=== PATIENT | female | born 1970 | race Two or more races ===

== ENCOUNTER 2024-02-18 03:10 | Emergency (ER) | payer MEDICAID ==
[~2024-02-18] VITALS: Ht 172.7 cm; Wt 73.5 kg
[2024-02-18 03:18] VITALS: BP 129/89; TEMP 98; O2SAT 99
[2024-02-18] MEDS ORDERED: OFLO5DRO5 OP (03:39)
== END 2024-02-18 03:50 | disposition home or self-care (01) ==
LOC: ER 03:14
DX: H10.9 Unspecified conjunctivitis (principal); Z91.013 Allergy to seafood